=== PATIENT | female | born 1945 | race Caucasian/White ===

== ENCOUNTER 2023-05-25 07:26 | Inpatient (IN) | payer MEDICARE, MEDICAID ==
[2023-05-25] VITALS (23 sets, daily range): BP systolic 104–134; BP diastolic 68–92; PULSE 85–128; RESP 14–24; TEMP 97.9–99.2
[~2023-05-25] VITALS: Ht 152.4 cm; Wt 45.4 kg
[2023-05-25] MEDS ORDERED: MIDAZOLAM HCL 100 MG in SODIUM CHLORIDE 0.9% 80 ML IV ONE (07:45)
[2023-05-25] MEDS ORDERED: MIDAZOLAM HCL 2 MG/2 ML VIAL IV ONE (07:45)
[2023-05-25] MEDS ORDERED: VECURONIUM BROMIDE 10 MG/VIAL IV ONE (07:45)
[2023-05-25] MEDS ORDERED: ETOMIDATE 2MG/ML 10ML VIAL IV ONE (07:45)
[2023-05-25] MEDS ORDERED: MIDAZOLAM HCL 100 MG in DEXT 5% WATER 80 ML IV ONE (07:45)
[2023-05-25 08:08] LABS: BASOPHILS % 1.8 % (0.0-2.0); EOSINOPHILS % 6.1 % (0.0-5.0); HEMATOCRIT. 29.3 % (36.0-48.0); HEMOGLOBIN. 8.9 g/dL (12.0-16.0); LYMPHOCYTES % 41.3 % (20.0-50.0); MEAN CORPUSCULAR HGB CONC 30.6 g/dL (31.0-37.0); MEAN CORPUSCULAR VOLUME 94.9 fL (81.0-99.0); MEAN PLATELET VOLUME 8.7 fl (7.4-10.4); MONOCYTES % 3.2 % (2.0-8.0); NEUTROPHILS % 47.6 % (40.0-76.0); PLATELET 391 x1000/uL (130-400); RED BLOOD CELL COUNT 3.08 mill/uL (4.2-5.4)
[2023-05-25 08:14] LABS: CLARITY URINE CLEAR (CLEAR); COLOR URINE YELLOW (YELLOW); GLUCOSE URINE NEGATIVE (NEGATIVE); KETONES URINE NEGATIVE (NEGATIVE); LEUKOCYTE ESTERASE URINE NEGATIVE (NEGATIVE); NITRITE URINE NEGATIVE (NEGATIVE); OCCULT BLOOD URINE NEGATIVE (NEGATIVE); PH URINE 5.5 (4.5-8.0); PROTEIN URINE 1+ (NEGATIVE); SPECIFIC GRAVITY URINE 1.012 (1.005-1.030); UROBILINOGEN URINE 0.2 E.U./dL (0.2-1.0)
[2023-05-25 08:16] LABS: RBC URINE 0-2 /hpf (0-2); WBC URINE NONE SEEN /hpf (0-2); YEAST URINE NONE SEEN
[2023-05-25 08:16] LABS: CHLORIDE 119 mEq/L (98-107); INDEX HEMOLYSI 1 (1-3); INDEX ICTERIC 1 (1-4); INDEX LIPEMIC 1 (1-3); POTASSIUM 3.8 mEq/L (3.5-5.1); SODIUM 140 mEq/L (136-145)
[2023-05-25 08:19] LABS: PROTHROMBIN TIME 10.6 sec (9.6-11.0)
[2023-05-25 08:25] LABS: ALBUMIN 3.1 g/dL (3.4-5.0); CARBON DIOXIDE 12 mEq/L (21-32); CREATININE 2.9 mg/dL (0.6-1.3); GLUCOSE 207 mg/dL (70-105); PROTEIN TOTAL 7.3 g/dL (6.0-8.3); UREA NITROGEN BLOOD 72 mg/dL (7-21)
[2023-05-25 08:26] LABS: ALANINE AMINOTRANSFERASE 39 IU/L (13-61); ASPARTATE AMINOTRANSFERASE 30 IU/L (15-37); BILIRUBIN TOTAL 0.6 mg/dL (0.1-1.0); NT PRO B-TYPE NATRIURETIC PEP 34247 pg/mL (5-125); TROPONIN I HIGH SENSITIVITY 26 ng/L (<54)
[2023-05-25 08:37] LABS: BACTERIA URINE FEW; SQUAMOUS EPITHELIAL CELL URINE RARE /lpf (RARE/1+)
[2023-05-25] MEDS ORDERED: NITROGLYCERIN OINT 1GM/INCH UDPKT TD ONE (09:00)
[2023-05-25] MEDS ORDERED: NITROGLYCERIN 50MG PREMIX 250 ML IV ONE (09:00)
[2023-05-25] MEDS ORDERED: FUROSEMIDE 40MG/4ML VIAL IV ONE (09:00)
[2023-05-25 09:28] LABS: LACTIC ACID 3.5 mmol/L (0.4-2.0)
[2023-05-25] MEDS ORDERED: NITROGLYCERIN 50 MG in DEXT 5% WATER 240 ML IV NR (09:30)
[2023-05-25] MEDS ORDERED: NITROGLYCERIN 50 MG in DEXT 5% WATER 250 ML IV NR (09:30)
[2023-05-25 09:40] LABS: BG BASE EXCESS -16.4 mmol/L (-2.0-2.0); BG CARBOXYHEMOGLOBIN 0.3 % (0.5-1.5); BG DEOXYHEMOGLOBIN 6.4 % (0.0-5.0); BG HCO3 ACT 13.4 mmol/L (22.0-26.0); BG METHEMOGLOBIN 0.3 % (0.0-1.5); BG OXYGEN SATURATION 93.6 % (92.0-98.5); BG PH 7.055 (7.350-7.450); BG PO2 86.8 mmHg (75.0-100.0); BG SAMPLE SITE RIGHT RADIAL; BG TOTAL HEMOGLOBIN 10.6 g/dL (12.0-18.0); BG TOTAL RESPIRATORY RATE 14 b/min; BG VENT MODE VENT - AC
[2023-05-25] MEDS ORDERED: HYDRALAZINE 20MG/ML VIAL IV PRN (10:00)
[2023-05-25] MEDS ORDERED: ONDANSETRON HCL 4MG/2ML INJ IV PRN (10:00)
[2023-05-25] MEDS ORDERED: ACETAMINOPHEN 650MG SUPP PR PRN (10:00)
[2023-05-25] MEDS ORDERED: DILTIAZEM HCL 5MG/ML 5ML VIAL IV PRN (10:00)
[2023-05-25] MEDS ORDERED: SODIUM BICARBONATE 8.4% 1 MEQ/ML 50ML SYR IV NR (10:13)
[2023-05-25] MEDS ORDERED: PIPERACILLIN/TAZ 3.375G PREMIX 50 ML IV NR (10:34)
[2023-05-25 10:35] LABS: INDEX HEMOLYSI 1 (1-3)
[2023-05-25 11:05] LABS: VITAMIN B12 SERUM 1693 pg/mL (211-911)
[2023-05-25 13:16] LABS: BG BASE EXCESS -4.3 mmol/L (-2.0-2.0); BG CARBOXYHEMOGLOBIN 0.3 % (0.5-1.5); BG DEOXYHEMOGLOBIN 3.4 % (0.0-5.0); BG HCO3 ACT 20.1 mmol/L (22.0-26.0); BG METHEMOGLOBIN 0.3 % (0.0-1.5); BG OXYGEN SATURATION 96.6 % (92.0-98.5); BG PCO2 34.2 mmHg (35.0-45.0); BG PH 7.387 (7.350-7.450); BG SAMPLE SITE RIGHT RADIAL; BG TOTAL HEMOGLOBIN 9.8 g/dL (12.0-18.0); BG TOTAL RESPIRATORY RATE 22 b/min; BG VENT MODE VENT - AC
[2023-05-25] MEDS ORDERED: ATOR40TA70 MT (17:06)
[2023-05-25] MEDS ORDERED: CETI10TA11 MT (17:07)
[2023-05-25] MEDS ORDERED: FURO80TA3 PO (17:08)
[2023-05-25] MEDS ORDERED: MONT-39 PO (17:09)
[2023-05-25] MEDS ORDERED: ASPI-1497 PO (17:11)
[2023-05-25] MEDS ORDERED: FERR325T6 PO (17:11)
[2023-05-25] MEDS ORDERED: PIPERACILLIN/TAZOBACTAM 3.375 G in DEXTROSE 5% WATER 50 ML IV SCH (21:00)
[2023-05-25 21:06] LABS: CREATINE KINASE MB FRACTION 3.5 ng/mL (0.5-3.6)
[2023-05-25] MEDS: PIPERACILLIN/TAZOBACTAM 3.375 G in DEXTROSE 5% WATER 50 ML IV SCH (22:34)
[2023-05-26] VITALS (60 sets, daily range): BP systolic 122–156; BP diastolic 70–92; PULSE 78–107; RESP 14–31; TEMP 97.7–99.9
[2023-05-26] MEDS ORDERED: MIDAZOLAM HCL 100 MG in SODIUM CHLORIDE 0.9% 80 ML IV PRN (00:30)
[2023-05-26] MEDS ORDERED: MIDAZOLAM HCL 100 MG in SODIUM CHLORIDE 0.9% 80 ML IV NR (00:45)
[2023-05-26 06:53] LABS: TROPONIN I HIGH SENSITIVITY 369 ng/L (<54)
[2023-05-26] MEDS ORDERED: AMLODIPINE 10MG TABLET PO SCH (09:00)
[2023-05-26] MEDS ORDERED: DEXTROSE 50% WATER 50ML SYRINGE IV PRN (09:15)
[2023-05-26] MEDS: IPRATROPIUM/ALBUTEROL 0.5-3(2.5)MG/3ML NEB HHN PRN ×2 (09:46→13:42)
[2023-05-26 11:04] LABS: BASOPHILS % 0.8 % (0.0-2.0); EOSINOPHILS % 1.8 % (0.0-5.0); HEMATOCRIT. 26.3 % (36.0-48.0); HEMOGLOBIN. 8.4 g/dL (12.0-16.0); LYMPHOCYTES % 11.7 % (20.0-50.0); MEAN CORPUSCULAR HEMOGLOBIN 29.3 pg (28.0-32.0); MEAN CORPUSCULAR VOLUME 91.7 fL (81.0-99.0); MEAN PLATELET VOLUME 8.7 fl (7.4-10.4); MONOCYTES % 5.2 % (2.0-8.0); NEUTROPHILS % 80.5 % (40.0-76.0); PLATELET 273 x1000/uL (130-400); RED BLOOD CELL COUNT 2.86 mill/uL (4.2-5.4); RED CELL DISTRIBUTION WIDTH 17.5 % (11.6-14.6); WHITE BLOOD COUNT 8.8 x1000/uL (4.5-11.0)
[2023-05-26 11:11] LABS: CHLORIDE 117 mEq/L (98-107); INDEX HEMOLYSI 1 (1-3); INDEX ICTERIC 1 (1-4); INDEX LIPEMIC 1 (1-3); POTASSIUM 4.4 mEq/L (3.5-5.1); SODIUM 146 mEq/L (136-145)
[2023-05-26 11:23] LABS: ALANINE AMINOTRANSFERASE 49 IU/L (13-61); ALBUMIN 2.7 g/dL (3.4-5.0); ASPARTATE AMINOTRANSFERASE 34 IU/L (15-37); BILIRUBIN TOTAL 0.5 mg/dL (0.1-1.0); CALCIUM 7.9 mg/dL (8.5-10.1); CARBON DIOXIDE 24 mEq/L (21-32); CHOLESTEROL 204 mg/dL (<200); CREATININE 2.8 mg/dL (0.6-1.3); GLUCOSE 106 mg/dL (70-105); HDL CHOLESTEROL 63 mg/dL (40-59); LDL CHOLESTEROL 140 mg/dL (5-100); PROTEIN TOTAL 6.6 g/dL (6.0-8.3); TRIGLYCERIDE 93 mg/dL (0-150); UREA NITROGEN BLOOD 68 mg/dL (7-21)
[2023-05-26 11:44] LABS: BG BASE EXCESS -1.3 mmol/L (-2.0-2.0); BG CARBOXYHEMOGLOBIN 0.3 % (0.5-1.5); BG DEOXYHEMOGLOBIN 2.4 % (0.0-5.0); BG METHEMOGLOBIN 0.3 % (0.0-1.5); BG OXYGEN SATURATION 97.6 % (92.0-98.5); BG PH 7.412 (7.350-7.450); BG PO2 109.2 mmHg (75.0-100.0); BG SAMPLE SITE RIGHT RADIAL; BG TOTAL RESPIRATORY RATE 14 b/min; BG VENT MODE VENT - AC
[2023-05-26] MEDS: BLOOD SUGAR DIAGNOSTIC STRIP TEST SCH ×3 (13:19→21:56)
[2023-05-26] MEDS: INSULIN LISPRO 100 UNITS/ML SUBCUT SCH ×3 (13:20→21:00)
[2023-05-26] MEDS ORDERED: FUROSEMIDE 40MG/4ML VIAL IVP SCH (13:30)
[2023-05-26] MEDS ORDERED: ASPIRIN 325MG TABLET PO SCH (13:30)
[2023-05-26] MEDS: HYDRALAZINE HCL 50MG TABLET PO SCH ×2 (13:34→21:58)
[2023-05-26] MEDS: PIPERACILLIN/TAZOBACTAM 3.375 G in DEXTROSE 5% WATER 50 ML IV SCH ×2 (13:39→20:32)
[2023-05-26] MEDS: ASPIRIN 81MG TABLET PO SCH (13:39)
[2023-05-26] MEDS: ISOSORBIDE DINITRATE 10MG TABLET PO SCH ×2 (13:41→16:52)
[2023-05-26 16:32] LABS: BG BASE EXCESS -1.4 mmol/L (-2.0-2.0); BG CARBOXYHEMOGLOBIN 0.3 % (0.5-1.5); BG DEOXYHEMOGLOBIN 2.9 % (0.0-5.0); BG FRACTION INSPIRED OXYGEN 40; BG HCO3 ACT 22.4 mmol/L (22.0-26.0); BG METHEMOGLOBIN 0.3 % (0.0-1.5); BG OXYGEN SATURATION 97.1 % (92.0-98.5); BG OXYHEMOGLOBIN 96.5 % (94.0-97.0); BG PCO2 33.9 mmHg (35.0-45.0); BG PH 7.438 (7.350-7.450); BG PO2 93.7 mmHg (75.0-100.0); BG SAMPLE SITE RIGHT RADIAL; BG TOTAL HEMOGLOBIN 9.3 g/dL (12.0-18.0); BG VENT MODE VENT - CPAP
[2023-05-26 19:19] LABS: BG BASE EXCESS -1.7 mmol/L (-2.0-2.0); BG CARBOXYHEMOGLOBIN 0.3 % (0.5-1.5); BG DEOXYHEMOGLOBIN 3.7 % (0.0-5.0); BG FRACTION INSPIRED OXYGEN 40; BG HCO3 ACT 22.1 mmol/L (22.0-26.0); BG METHEMOGLOBIN 0.5 % (0.0-1.5); BG OXYGEN SATURATION 96.3 % (92.0-98.5); BG OXYHEMOGLOBIN 95.5 % (94.0-97.0); BG PCO2 33.7 mmHg (35.0-45.0); BG PH 7.435 (7.350-7.450); BG PO2 88.7 mmHg (75.0-100.0); BG SAMPLE SITE RIGHT RADIAL; BG TOTAL HEMOGLOBIN 9.7 g/dL (12.0-18.0); BG VENT MODE COOL AEROSOL
[2023-05-26] MEDS: FUROSEMIDE 40MG/4ML VIAL IVP SCH (20:32)
[2023-05-26] MEDS: ATORVASTATIN CALCIUM 40MG TABLET PO SCH (20:33)
[2023-05-27] VITALS (43 sets, daily range): BP systolic 124–175; BP diastolic 74–134; PULSE 80–100; RESP 14–23; TEMP 98.1–99.3
[2023-05-27 06:00] LABS: CALCIUM 8.2 mg/dL (8.5-10.1)
[2023-05-27 06:05] LABS: BASOPHILS % 1.5 % (0.0-2.0); EOSINOPHILS % 6.1 % (0.0-5.0); HEMATOCRIT. 26.2 % (36.0-48.0); HEMOGLOBIN. 8.6 g/dL (12.0-16.0); LYMPHOCYTES % 13.1 % (20.0-50.0); MEAN CORPUSCULAR HEMOGLOBIN 29.5 pg (28.0-32.0); MEAN CORPUSCULAR HGB CONC 32.7 g/dL (31.0-37.0); MEAN CORPUSCULAR VOLUME 90.2 fL (81.0-99.0); MEAN PLATELET VOLUME 8.7 fl (7.4-10.4); MONOCYTES % 5.8 % (2.0-8.0); NEUTROPHILS % 73.5 % (40.0-76.0); PLATELET 270 x1000/uL (130-400); RED CELL DISTRIBUTION WIDTH 16.6 % (11.6-14.6); WHITE BLOOD COUNT 8.7 x1000/uL (4.5-11.0)
[2023-05-27 06:06] LABS: CREATININE 2.9 mg/dL (0.6-1.3)
[2023-05-27] MEDS: HYDRALAZINE HCL 50MG TABLET PO SCH ×3 (06:58→23:14)
[2023-05-27] MEDS: BLOOD SUGAR DIAGNOSTIC STRIP TEST SCH ×4 (07:46→21:00)
[2023-05-27] MEDS: INSULIN LISPRO 100 UNITS/ML SUBCUT SCH ×4 (07:46→21:00)
[2023-05-27] MEDS: CARVEDILOL 6.25 MG TABLET PO SCH ×2 (09:05→21:24)
[2023-05-27] MEDS: FUROSEMIDE 40MG/4ML VIAL IVP SCH ×2 (09:05→22:55)
[2023-05-27] MEDS: ISOSORBIDE DINITRATE 10MG TABLET PO SCH (09:05)
[2023-05-27] MEDS: PIPERACILLIN/TAZOBACTAM 3.375 G in DEXTROSE 5% WATER 50 ML IV SCH ×2 (09:06→23:15)
[2023-05-27] MEDS: ASPIRIN 81MG TABLET PO SCH (09:06)
[2023-05-27] MEDS: ISOSORBIDE DINITRATE 20MG TABLET PO SCH ×2 (13:05→16:37)
[2023-05-27] MEDS: ATORVASTATIN CALCIUM 40MG TABLET PO SCH (21:23)
[2023-05-28] VITALS (7 sets, daily range): BP systolic 138–153; BP diastolic 71–94; PULSE 67–93; RESP 13–19; TEMP 98.2–98.6
[2023-05-28 06:44] LABS: BASOPHILS % 1.3 % (0.0-2.0); EOSINOPHILS % 8.2 % (0.0-5.0); HEMATOCRIT. 23.3 % (36.0-48.0); HEMOGLOBIN. 7.8 g/dL (12.0-16.0); LYMPHOCYTES % 20.4 % (20.0-50.0); MEAN CORPUSCULAR HEMOGLOBIN 30.4 pg (28.0-32.0); MEAN CORPUSCULAR HGB CONC 33.5 g/dL (31.0-37.0); MEAN CORPUSCULAR VOLUME 90.6 fL (81.0-99.0); MEAN PLATELET VOLUME 8.9 fl (7.4-10.4); MONOCYTES % 5.8 % (2.0-8.0); NEUTROPHILS % 64.3 % (40.0-76.0); PLATELET 259 x1000/uL (130-400); RED BLOOD CELL COUNT 2.58 mill/uL (4.2-5.4); RED CELL DISTRIBUTION WIDTH 16.9 % (11.6-14.6); WHITE BLOOD COUNT 7.9 x1000/uL (4.5-11.0)
[2023-05-28] MEDS: BLOOD SUGAR DIAGNOSTIC STRIP TEST SCH ×4 (06:44→21:00)
[2023-05-28] MEDS: HYDRALAZINE HCL 50MG TABLET PO SCH ×3 (06:48→23:54)
[2023-05-28] MEDS: INSULIN LISPRO 100 UNITS/ML SUBCUT SCH ×4 (07:20→21:00)
[2023-05-28 07:28] LABS: POTASSIUM 3.8 mEq/L (3.5-5.1)
[2023-05-28 07:34] LABS: CALCIUM 8.2 mg/dL (8.5-10.1); CREATININE 2.9 mg/dL (0.6-1.3)
[2023-05-28] MEDS: PIPERACILLIN/TAZOBACTAM 3.375 G in DEXTROSE 5% WATER 50 ML IV SCH ×2 (09:45→21:07)
[2023-05-28] MEDS: FUROSEMIDE 40MG/4ML VIAL IVP SCH ×2 (09:46→21:06)
[2023-05-28] MEDS: ASPIRIN 81MG TABLET PO SCH (09:46)
[2023-05-28] MEDS: CARVEDILOL 6.25 MG TABLET PO SCH ×2 (09:46→20:52)
[2023-05-28] MEDS: ISOSORBIDE DINITRATE 20MG TABLET PO SCH ×3 (10:32→18:43)
[2023-05-28 15:00] LABS: BG BASE EXCESS 0.7 mmol/L (-2.0-2.0); BG CARBOXYHEMOGLOBIN 0.3 % (0.5-1.5); BG DEOXYHEMOGLOBIN 5.1 % (0.0-5.0); BG FRACTION INSPIRED OXYGEN 21; BG METHEMOGLOBIN 0.7 % (0.0-1.5); BG OXYGEN SATURATION 94.8 % (92.0-98.5); BG OXYHEMOGLOBIN 93.9 % (94.0-97.0); BG PCO2 33.3 mmHg (35.0-45.0); BG PH 7.476 (7.350-7.450); BG SAMPLE SITE RIGHT BRACHIAL; BG TOTAL HEMOGLOBIN 8.8 g/dL (12.0-18.0); BG VENT MODE ROOM AIR
[2023-05-28] MEDS: ACETAMINOPHEN 325MG TABLET PO PRN (20:51)
[2023-05-28] MEDS: ATORVASTATIN CALCIUM 40MG TABLET PO SCH (20:52)
[2023-05-29 04:00] VITALS: BP 144/73; PULSE 68; RESP 12; TEMP 98.8
[2023-05-29] MEDS: HYDRALAZINE HCL 50MG TABLET PO SCH ×2 (06:35→14:41)
[2023-05-29] MEDS: BLOOD SUGAR DIAGNOSTIC STRIP TEST SCH ×2 (06:46→12:00)
[2023-05-29] MEDS: INSULIN LISPRO 100 UNITS/ML SUBCUT SCH ×2 (07:20→12:11)
[2023-05-29 08:00] VITALS: BP 135/60; PULSE 87; RESP 18; TEMP 98.2
[2023-05-29] MEDS: ASPIRIN 81MG TABLET PO SCH (08:29)
[2023-05-29] MEDS: FUROSEMIDE 40MG/4ML VIAL IVP SCH (08:29)
[2023-05-29] MEDS: ISOSORBIDE DINITRATE 20MG TABLET PO SCH ×2 (08:29→12:32)
[2023-05-29] MEDS: CARVEDILOL 6.25 MG TABLET PO SCH (08:29)
[2023-05-29] MEDS: PIPERACILLIN/TAZOBACTAM 3.375 G in DEXTROSE 5% WATER 50 ML IV SCH (08:30)
[2023-05-29 12:00] VITALS: BP 137/79; PULSE 70; RESP 16; TEMP 97.8
[2023-05-29] MEDS: ACETAMINOPHEN 325MG TABLET PO PRN (12:32)
[2023-05-29] MEDS ORDERED: ISOS20TA8 PO (14:08)
[2023-05-29] MEDS ORDERED: ASPI-1160 PO (14:08)
[2023-05-29] MEDS ORDERED: COR6 PO (14:08)
[2023-05-29] MEDS ORDERED: HYDR-4135 PO (14:08)
[2023-05-29] MEDS ORDERED: LIP40 PO (14:08)
[2023-05-29] MEDS ORDERED: FURO80TA3 PO (14:08)
[2023-05-29 16:00] VITALS: BP 150/85; PULSE 75; RESP 20; TEMP 98.2
[2023-05-29 16:10] VITALS: BP 137/79; PULSE 70; TEMP 97.8; O2SAT 98
== END 2023-05-29 17:15 | disposition home or self-care (01) | DRG 208 ==
LOC: ER 07:37 → CVICU 08:54 → 3WST 05-27 19:06
PROVIDERS: ADMIT Internal Medicine; ATTEND Internal Medicine
PROC: 5A1945Z Respiratory Ventilation, 24-96 Consecutive Hours (ICD-10-PCS; principal; 2023-05-25)
PROC: 0BH17EZ Insertion of Endotracheal Airway into Trachea, Via Natural or Artificial Opening (ICD-10-PCS; 2023-05-25)
DX: J96.01 Acute respiratory failure with hypoxia (principal); J18.9 Pneumonia, unspecified organism; I21.4 Non-ST elevation (NSTEMI) myocardial infarction; N17.9 Acute kidney failure, unspecified; E87.20 Acidosis, unspecified; I13.0 Hypertensive heart and chronic kidney disease with heart failure and stage 1 through stage 4 chronic kidney disease, or unspecified chronic kidney disease; E46 Unspecified protein-calorie malnutrition; J96.22 Acute and chronic respiratory failure with hypercapnia; R91.8 Other nonspecific abnormal finding of lung field; Z20.822 Contact with and (suspected) exposure to COVID-19; I50.9 Heart failure, unspecified; D63.1 Anemia in chronic kidney disease; R73.9 Hyperglycemia, unspecified; N18.9 Chronic kidney disease, unspecified; I16.0 Hypertensive urgency; I27.20 Pulmonary hypertension, unspecified; D72.829 Elevated white blood cell count, unspecified; Z96.643 Presence of artificial hip joint, bilateral; Z86.16 Personal history of COVID-19; Z99.81 Dependence on supplemental oxygen
CPT/HCPCS: 31500; 36415; 36600; 71045; 71250; 78580; 80048; 80053; 80061; 81003; 82375; 82550; 82553; 82607; 82805; 82962; 83036; 83605; 83880; 84145; 84484; 85025; 85379; 87070; 87426; 92610; 93005; 93306; 93970; 94002; 94003; 94618; 94640; 99291; C9803; J0360; J1940; J2250; J2543; J3490; J7050; J7060; A4315